=== PATIENT | female | born 1980 | race Caucasian/White ===

== ENCOUNTER 2021-11-03 07:55 | Day surgery (SDC) | payer OTHER, SELFPAY ==
[2021-10-31 08:57] VITALS: BMI 32.9
[2021-11-03 08:08] VITALS: BP 152/101; PULSE 86; RESP 16; TEMP 37.2; O2SAT 99
[2021-11-03 08:21] LABS: UPreg QC Valid YES; Urine Pregnancy NEGATIVE (NEGATIVE)
[2021-11-03] MEDS: Lactated Ringers 1,000 ML 100 ML IVCONT (08:44)
--- NOTE | 2021-11-03 08:49 | MHC.SHP ---
Pre-Procedural Eval Section A Date of Service: 11/03/21 The patient is an INPATIENT: No Changes since office visit: No Cold of Flu in the past 2 weeks, No New Medical Problems, No Changes in Medication and No Patient answered all questions The History & Physical has been completed within 30 days and I have reviewed it.: Yes Section B Chief Complaint: hallux valgus Allergies: Allergies Allergy/AdvReac Type Severity Reaction Status Date / Time latex Allergy Unknown Unknown Verified 10/31/21 08:58 Plan I have reviewed the history and physical and performed a pertinent physical examination on my patient. No changes have occurred unless specified.
--- NOTE | 2021-11-03 09:19 | MHC.SHP ---
Pre-Procedural Eval Section A Date of Service: 11/03/21 Section B Chief Complaint: hallux valgus Allergies: Allergies Allergy/AdvReac Type Severity Reaction Status Date / Time latex Allergy Unknown Unknown Verified 10/31/21 08:58 Review of Systems Sugical H&P ROS: Negative: Constitution, Cardiovascular, Respiratory, Neurological, Psychiatric, Hem-Onc, Allergic/Immunologic, Gastrointestinal, Genitourinary, Musculoskeletal, Integumentary, Endocrine and Eyes/Ears/Nose/Throat Exam Surgical H&P Exam: Normal: HEENT, Normal: Heart, Normal: Lungs, Normal: Extremities, Normal: Abdomen, Normal: Skin and Normal: Neurological Plan Diagnosis/Plan: Unchanged I have reviewed the history and physical and performed a pertinent physical examination on my patient. No changes have occurred unless specified.
--- NOTE | 2021-11-03 09:31 | HP_ITS ---
DATE OF SERVICE: 11/03/2021 PREOPERATIVE DIAGNOSES: Hallux abductovalgus deformity, left foot. PLANNED PROCEDURE: Left foot Augusto bunionectomy. PAST MEDICAL HISTORY: Anxiety, osteoarthritis, asthma, hip back and knee pain, headaches, migraines, epilepsy, chickenpox, premature ventricular contraction, and rosacea. CURRENT MEDICATIONS: L-glutamine, vitamin C, L-arginine, acetylcysteine, Prevacid, vitamin D, Zyrtec, magnesium, alpha-lipoic acid, and krill oil. SURGICAL HISTORY: Denies. FAMILY HISTORY: Significant for arthritis, foot problems and cancer. SOCIAL HISTORY: Patient is a nonsmoker. Denies any illicit drug use. 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 ALLERGIES: SHE GETS A RASH WITH LATEX. HOSPITALIZATIONS: Denies. REVIEW OF SYSTEMS: Within normal limits. HISTORY OF PRESENT ILLNESS: The patient is a 41-year-old female who presents with aching and tenderness in her left great toe joint, has been present for over a year. This has been gradually getting progressively worse, pain with pressure standing and walking, has tried rest, change in shoes without any significant relief in symptoms. PHYSICAL EXAMINATION: GENERAL: Reveals a pleasant alert, well-nourished, well-developed, well-hydrated individual and demonstrates proper attention to body habitus. She is in no acute distress. She is oriented x3. NEUROLOGICAL: Exam reveals intact sensorium. Pain sensation is normal. Vibratory sensation is intact. Denies any anesthesias, burning or paresthesias or tingling bilaterally. VASCULAR: DP and PT pulses are 3/4 bilaterally. Capillary refill is immediate to all digits. Skin temperature, elasticity and turgor warm to cool proximal to distal. Hair growth, texture, elasticity and turgor normal bilaterally. Pigmentation is normal. There is no edema. DERMATOLOGIC: Exam reveals normal texture elasticity and turgor. There are no masses. ORTHOPEDIC: Muscle strength is 5/5 in a symmetrical fashion bilaterally. There is a medially prominent 1st metatarsophalangeal joint with lateral tracking of the 1st MPJ, which is incompletely reducible on the left foot and pain on palpation and pain with range of motion of the left great toe joint. X-rays revealed normal bone and soft tissue density consistent with patient's age and sex. There is increased 1st intermetatarsal angle and hallux abductus angle consistent with bunion deformity, hypertrophy of the dorsal medial 1st metatarsal head without subchondral cyst in tibial sesamoid position is about #4. PLAN: The patient is scheduled for surgery. Several types of bunion surgery were discussed in detail with the patient including risks, benefits, and possible complications. We discussed the potential risks of surgery versus not having surgery and the potential complications including, but not limited to pain, swelling, bleeding, scarring, numbness, infection, delayed or nonhealing, floppy, unstable, shortened toe, recurrence, failure of the procedure, over-correction, plantar flexed downward or upper position of the toe, need for further surgery as well as loss of possibility of toe, foot, life, or limb. Discussed use of local and IV anesthesia and the usual postoperative course. No guarantees were given. The patient verbally indicated full understanding of the above conversation and all their questions were answered to her satisfaction. We decided on performing an Augusto bunionectomy based on the patient's complaints medical and social history, physical exam and x-ray analysis. The patient would like to proceed with surgery. She will obtain preoperative labs as well as medical clearance for surgery and anesthesia from her primary care physician. She is made aware to stop any and all blood thinners including [id number] fish oil or aspirin as well at least 1 week prior to surgery. She is made aware that driving may not be allowed during a portion of postoperative period and not to utilize any tobacco products. The patient elected to have a small amount of narcotic pain medication and prescription for Percocet 5/325 mg was dispensed as well as the patient can take [id number] ibuprofen, was given a prescription for 800 mg ibuprofen 3 times a day if needed and when not taking Percocet can take Tylenol. She will be partial weightbearing to the left foot with a postoperative shoe and crutches, which she will get at the hospital. Yamel Lala DPM LP/DEXTER / [id number]
--- NOTE | 2021-11-03 09:50 | P.CONAN_ITS ---
HPI - Anesthesia Eval Consult details Narrative: 41 F for bunionectomy Hx of symptomatic PVCs. Cardiology cleared [facility] Past Medical History Medical History Ascending aorta dilation Asthma Back pain Congenital septal defect of heart COVID-19 vaccine series completed History of COVID-19 Palpitations Seizure disorder during Family History Family history of problems with anesthesia: No Surgical History Surgical History Hx of wisdom tooth extraction Surgical history unknown History of Problems with Anesthesia: No Social History Social History Patient Tobacco Use Status: Former Tobacco user Quit Date: 18 yrs ago Use of substances other than those prescribed or required for medical reasons: No Are you DNR?: No Advance Directives: No Advance Directives Information Provided: Yes Meds Allergies Allergy/AdvReac Type Severity Reaction Status Date / Time latex Allergy Unknown Unknown Verified 10/31/21 08:58 Active Medications: Current Medications Lactated Ringer's (Lr) 1,000 mls @ 100 mls/hr IVCONT .Q10H MAICO Last Admin: 11/03/21 08:44 Dose: 100 mls/hr Documented by: Home Medications Medication Instructions Recorded Confirmed Last Taken Type L-Arginine(alpha-ketoglutarat) 1 cap PO DAILY 10/31/21 10/31/21 Unknown History alpha lipoic acid 600 mg capsule 600 mg PO DAILY 10/31/21 10/31/21 Unknown History ascorbic acid (vitamin C) 1,000 mg 1,000 mg PO DAILY 10/31/21 10/31/21 Unknown History tablet cetirizine 10 mg tablet 10 mg PO DAILY 10/31/21 10/31/21 Unknown History cholecalciferol (vitamin D3) 125 250 mcg PO DAILY 10/31/21 10/31/21 Unknown History mcg (5,000 unit) tablet (Vitamin D3) famotidine 40 mg tablet 40 mg PO BEDTIME 10/31/21 10/31/21 Unknown History krill 1,000 mg-omega-3 170 mg-dha 1 cap PO BID 10/31/21 10/31/21 Unknown History 50 mg-epa 80 [id number] capsule (krill oil) magnesium oxide 250 mg PO BEDTIME 10/31/21 10/31/21 Unknown History metronidazole 0.75 % topical gel 1 appl TOPICAL BID 10/31/21 10/31/21 Unknown History ([place]) Exam Exam Date and Time: November 03, 2021 0950 Height,Weight and Vital Signs: Height 5 ft 6.5 in Weight 207 lb Last Vital Signs Temp 99.0 F 11/03/21 08:08 Pulse 86 11/03/21 08:08 Resp 16 11/03/21 08:08 BP 152/101 H 11/03/21 08:08 Pulse Ox 99 11/03/21 08:08 Pertinent Lab Results Pertinent Lab Results: Laboratory Tests 11/03/21 07:55 Urine Test NEGATIVE Airway Mallampati Class: II TM Dist: >3cm Neck ROM: Full Loose/Missing/Broken Teeth: Yes Assessment and Plan Assessment Anesthesia Assessment: Anesthesia Plan Discussed and Chart Reviewed Final Anesthetic Review Family History of Problems with Anesthesia: No History of Problems with Anesthesia: No NPO: Yes ASA Class: II Final Preanesthetic Review: No Changes in Pt Med Stat, Meds/Allgs Chart Reviewed, Consent Obtained/Reviewed and Anes Risks/Benef Reviewed Patient Risk: Low Procedure Risk: Low Anesthetic Plan Anesthetic Plan: MAC: Disposition: Standard PACU
--- NOTE | 2021-11-03 10:02 | PM.OP ---
Brief Operative Note Date of Service: 11/03/21 Pre-op diagnosis: Hallux valguas left foot Post-op diagnosis: same Procedure: Left foot Augusto Bunionectomy Implants: Pavel Asnis screws Surgeon: Yamel Lala Anesthesia: MAC and local Was an Electromyographic Technician used for this Procedure?: No Electromyographic Technician: Ryan Stokes Estimated blood loss (mL): 5 Tourniquet time (min): 22 Pathology: other Condition: stable Disposition: PACU
[2021-11-03 10:10] VITALS: BP 108/70; PULSE 70; RESP 16; TEMP 36.5; O2SAT 99
[2021-11-03 10:26] VITALS: BP 122/77; PULSE 61; RESP 16; TEMP 36.4; O2SAT 99
--- NOTE | 2021-11-03 11:32 | OP_ITS ---
SURGEON: Yamel Lala DPM PREOPERATIVE DIAGNOSIS: Hallux abductovalgus deformity, left foot. POSTOPERATIVE DIAGNOSIS: Hallux abductovalgus deformity, left foot. PROCEDURE PERFORMED: Left foot Augusto bunionectomy. ESTIMATED BLOOD LOSS: Less than 5 cc. COMPLICATIONS: None. ANESTHESIA: Monitored anesthetic care with local consisting preoperatively of 18 cc of 0.5% Marcaine plain and 2% lidocaine plain and postoperatively of 5 cc of 0.5% Marcaine plain and 1 cc of dexamethasone. HEMOSTASIS: Pneumatic ankle tourniquet set at 225 mmHg for 22 minutes. EPILEPSY PHYSICIAN: Ryan Stokes DPM. SPECIMEN: Bone, left foot. INDICATIONS FOR SURGERY: The patient had painful bunion deformity noted to the left foot that has been present for some time. The patient has failed conservative therapies and has elected for surgical intervention. The above-mentioned surgery was discussed in detail with the patient including risks, benefits, and possible complications. No guarantees were given, and written and oral informed consent was obtained. PROCEDURE IN DETAIL: Patient was brought to operating room, placed on the table in supine position. Following IV sedation, the above-mentioned local anesthetic was injected about the left foot in a regional field block fashion. 2 g of cefazolin was administered as a prophylactic preoperative antibiotic and the left foot was scrubbed, prepped, and draped in a sterile manner. Attention was directed to the left foot and the foot was exsanguinated and pneumatic ankle tourniquet was inflated. Attention was directed to the first metatarsophalangeal joint where incision was made approximately 8 cm in length. The incision was deepened down through subcutaneous tissue. Great care being taken to retract vital neurovascular structures and all bleeders were cauterized as necessary. A linear capsulotomy was made medial and parallel to the extensor tendon and the soft tissues were freed about the head of the first metatarsal. A medial eminence was resected using power instrumentation and passed from the operative field. Attention was then directed to the first interspace via the same incision where a lateral release was performed. The deep transverse intermetatarsal ligament was transected, the fibular sesamoidal ligament, and the head of the adductor tendon allowing the first metatarsal head to drift into a more corrected position. Attention was directed back medially where an apex was denoted with a K-wire and then 2 osteotomy cuts were made in a V-type fashion proximally dorsally and proximally plantarly. The osteotomy was completed and the capital fragment was translocated laterally and impacted upon the first metatarsal head. Two 16 mm [place] Asnis screws were then inserted under standard technique. All guidewires were removed. The remaining hanging medial eminence was resected and the wound was irrigated with normal sterile saline. There was noted to be excellent compression of the osteotomy site and reduction of the bunion deformity. The capsular structures reapproximated with 3-0 Vicryl in a continuous running fashion. The subcutaneous tissues were approximated with 4-0 Monocryl in a continuous running fashion and interrupted suture of 4-0 nylon was placed as well. The incision was then dressed with a Pavel ZipLine. A postoperative injection of 0.5% Marcaine plain and 5 cc of 0.5% Marcaine plain and 1 cc of dexamethasone was administered. The incision was then dressed with Betadine soaked gauze, 4x4s, fluffs, Kerlix, cast padding, and an Giles bandage. The pneumatic ankle tourniquet was deflated after 22 minutes and prompt capillary refill was noted to all 5 digits. The patient tolerated procedure and anesthesia well. She was transferred to the recovery room with vital signs stable and vascular status at preoperative levels. Following a period of postop recovery, patient was discharged home with written and oral postoperative instructions. She is to be partial weightbearing to the left foot in a surgical shoe with crutches and will follow up in my office for all postoperative followup care. Yamel Lala DPM LP/DEXTER / [id number] ACE
== END 2021-11-03 11:08 | disposition home or self-care (01) ==
PROVIDERS: Nurse Practitioner; PCP Family Medicine; Visit Provider Podiatrist
PROC: (CPT 28292; principal; 2021-11-03 09:10)
DX: M20.12 Hallux valgus (acquired), left foot (principal); M21.612 Bunion of left foot; I77.810 Thoracic aortic ectasia; R00.2 Palpitations; J45.909 Unspecified asthma, uncomplicated; Z79.899 Other long term (current) drug therapy; Z86.16 Personal history of COVID-19; Z87.891 Personal history of nicotine dependence
CPT/HCPCS: 28299; 81025; 88304; 88311; C1713; J0690; J1100; J3010